=== PATIENT | female | born 1985 | race African-American/Black ===

== ENCOUNTER → 2017-04-16 | Day surgery (SDC) | payer OTHER ==
[~2017-04-16] VITALS: Ht 167.6 cm; Wt 111.1 kg
[~2017-04-16] MED LIST: PROAIR HFA8.5 GM INH
--- NOTE | 2017-04-16 15:49 | Operative Report ---
Operative/Inv Procedure Report Surgery Date: 04/16/17 Name of Procedure: urethral sling, cystoscopy Pre-Operative Diagnosis: stress incontinence Post-Operative Diagnosis: same Estimated Blood Loss: 50ml to 100ml Surgeon/Mushroom Growing Supervisor: TOMASZ TERRY MD Anesthesia: local monitored anesthesi Implants: vaginal mesh Drains: none Complications: none Condition: stable Operative Indication: stress incontinence Operative/Procedure Note Note: This an operative dictation on patient Sharon Wills. She was consented for urethral sling and cystoscopy for stress urinary incontinence. The risks benefits and alternatives of the sling were given to the patient and all questions were answered. Her fianc was also present and any question she had were also answered. Patient was taken to the operating room placed on the operating table in the supine position. Timeout was performed and IV sedation was begun. IV antibiotics were infused 2 g of Kefzol. Patient was placed in the dorsolithotomy position and she was shaved and then prepped and draped in the standard sterile fashion. Aranda catheter was placed and the bladder was emptied. The Aranda was clamped and placed on the patient's abdomen. Since retractor was placed in the 1% lidocaine was infiltrated into the anterior vaginal wall. An incision was made beneath the urethra. The vaginal flaps are created taking care not to injure the urethra. The Altis sling kit was then opened and the trochars provided was used to place the sling. The left side was placed first followed by the right side and the sling was seen to be in a good tension-free manner once the Prolene tightening suture was pulled. It accommodated a DeBakey forcep easily between the urethra and the sling. The Prolene suture to tighten was then cut. It was grossly irrigated with bacitracin irrigation. The incision was closed with 3-0 Vicryl running locking suture. A cystoscopy was then performed and the bladder was globally inspected. There was no abnormalities and the ureteral orifices were in the normal anatomic position. There was no mesh in the bladder the urethra or the vaginal fornices. The bladder was emptied and the cystoscope was removed. Sponge and needle count were correct at the end of the case. Patient tolerated the procedure well. Findings: no mesh in bladder, urethra or vaginal fornices. NOrmal bladder anatomy. Discharge Disposition: PACU
== END ==
LOC: STS 02:30
DX: N39.3 Stress incontinence (female) (male) (principal); N13.39 Other hydronephrosis; R33.9 Retention of urine, unspecified; J45.909 Unspecified asthma, uncomplicated; E66.9 Obesity, unspecified; Z68.39 Body mass index [BMI] 39.0-39.9, adult
CPT/HCPCS: 81025; C1771; J0131; J0690; J2250